=== PATIENT | male | born 2000 | race Caucasian/White ===

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

== ENCOUNTER 2021-09-21 10:19 | Emergency (ER) | payer SELFPAY ==
[2021-09-21 10:25] VITALS: BP 118/98; PULSE 86; RESP 24; TEMP 36.4; O2SAT 100
--- NOTE | 2021-09-21 10:25 | ED.NAVMDI ---
HPI - Nausea/Vomiting/Diarrhea General Chief complaint: Nausea/Vomiting/Diarrhea Stated complaint: Ambulance Time Seen by Provider: 09/21/21 10:25 Source: patient History of Present Illness HPI Narrative: 21-year-old male presents to the ER with an 8 hour history of -- multiple episodes of vomiting and diarrhea. Vomitus is watery. Diarrhea is brown and watery. No blood or mucus noted. -- Generalized abdominal pain. -- No fever. Patient complains of chills and rigors. MD elicited complaint: nausea, vomiting, diarrhea and abdominal pain Pertinent past history: anorexia Onset (ago): hour(s) ( 8 hours ago) Description of vomiting: watery Description of diarrhea: watery and semi-solid Associated nausea: Yes Associated abdominal pain: Yes Location of pain: diffuse Pain consistency: constant Severity: moderate Quality: cramping Exacerbating factors: none Relieving factors: none Context: possible food poisoning ( his fiancee is ill with the same symptoms.) Associated symptoms: myalgias and anxiety Related Data Allergies Allergy/AdvReac Type Severity Reaction Status Date / Time No Known Allergies Allergy Mild Verified 10/15/07 18:46 Review of Systems Review of Systems: All systems reviewed & are unremarkable except as noted in HPI and below Constitutional: Constitutional: Reports as per HPI and Reports no additional constitutional complaints Eyes: Eyes: Reports as per HPI and Reports no additional eye complaints ENT: Reports system reviewed and no additional complaints, except as documented Cardiovascular: Cardiovascular: Reports as per HPI and Reports no additional cardiovascular complaints Respiratory: Respiratory: Reports as per HPI and Reports no additional respiratory complaints Gastrointestinal: Gastrointestinal: Reports as per HPI, Reports no additional gastrointestinal complaints, Reports diarrhea, Reports nausea and Reports vomiting Genitourinary: Genitourinary: Reports no additional male genitourinary complaints Musculoskeletal: Musculoskeletal: Reports myalgias Integumentary/Breasts: Skin/Breast: Reports system reviewed and no additional complaints, except as docu Neurologic: Reports system reviewed and no additional complaints, except as documented Psychiatric: Psychiatric: Reports no additional psychiatric complaints and Reports anxiety Endocrine: Endocrine: Reports no additional endocrine complaints Hematologic/Lymphatic: Hematologic/Lymphatic: Reports no additional hematologic/lymphatic complaints Allergic/Immunologic: Allergic/Immunologic: Reports no additional allergic/immunologic complaints Exam Const: General: no acute distress and alert Orientation/consciousness: patient oriented x3 HENMT: Head: normal to inspection Eyes: Cornea: corneas normal Pupils: Equal, round and reactive pupils present EOM: EOMs intact bilaterally Neck: Neck: normal visual inspection and no lymphadenopathy Chest: Chest palpation & inspection: normal inspection of the chest Resp: Effort & Inspection: normal respiratory effort Auscultation: clear to auscultation bilaterally Cardio: Rate: regular rate Rhythm: regular rhythm GI: GI Palp: Yes Soft to palpation and Yes Tenderness to palpation present (GI) : Testes: Testes normal Back/Spine/Pelvis: Back: no CVA tenderness Skin: General skin exam: normal color Neuro: General: patient oriented x3 and moves all extremities Extrem: General: normal to inspection Psych: Appearance: grossly normal Mental Status: mental status grossly normal Thought content: Yes Normal thought content present MDM - Nausea/Vomiting/Diarrhea MDM Narrative Medical decision making narrative: acute gastroenteritis acute renal failure Differential Diagnosis Differential diagnosis: Likely traveler's diarrhea and food poisoning Lab Data Attestation: I reviewed the patient's lab results. Discharge Plan Discharge Clinical Impression: Gastroenteritis Acute renal failur
[2021-09-21] MEDS: PROCHLORPERAZINE EDISYLATE 10 MG/2 ML VIAL IV PUSH (10:56)
[2021-09-21] MEDS: LACTATED RINGERS 1,000 ML 999 ML IV CONT (10:57)
[2021-09-21 11:05] LABS: Hematocrit 47.5 % (40.0-54.0); Hemoglobin 16.3 g/dL (14.0-18.0); Mean Corpuscular HGB Conc 34.3 g/dL (32.0-36.0); Mean Corpuscular Volume 90.3 fL (78.0-102.0); Mean Platelet Volume 10.3 fl (8.7-11.0); Platelet Count Result 245 K/mm3 (150-420); Red Blood Count 5.26 M/mm3 (4.70-6.10); Red Cell Distribution Width 11.9 % (11.6-14.4)
--- NOTE | 2021-09-21 11:10 | PC.NURSE ---
Lab called with critical white count of 20. Dr. Oviedo notified.
--- NOTE | 2021-09-21 11:16 | PC.NURSE ---
Pt gave verbal permission to speak to mom and finance regarding pt status. Mom called on phone and updated.
[2021-09-21 11:19] LABS: Band Neutrophils Percent 4 % (0-6); INR 1.1; Lymphocytes Percent Manual 2 % (18-44); Monocytes Percent Manual 4 % (3-9); Myelocytes Percent 1 %; Neutrophils Percent Manual 89 % (46-73); Platelet Estimate Adequate (Adequate); Prothrombin Time 11.8 Seconds (9.50-12.10); Total Cells Counted 100
[2021-09-21 11:26] LABS: Lactic Acid Reflex 6.3 mmol/L (0.4-2.0)
[2021-09-21 11:32] LABS: Alanine Aminotransferase 30 U/L (16-63); Albumin Level 4.9 g/dL (3.4-5.0); Alkaline Phosphatase 75 U/L (46-116); Anion Gap 19 mmol/L (8-16); Aspartate Amino Transferase 19 U/L (15-37); Bilirubin,Total 0.8 mg/dL (0.00-1.00); Blood Urea Nitrogen 20 mg/dL (7-18); Calcium 9.7 mg/dL (8.5-10.1); Carbon Dioxide 20 mmol/L (21-32); Chloride 101 mmol/L (98-108); Estimated CRCL calculation 66 ml/min; Estimated Glomerular Filt Rate > 60; Glucose 193 mg/dL (70-99); Lipase 57 U/L (73-393); Osmolality Calculated 297 mOsm/kg (285-295); Potassium 3.4 mmol/L (3.5-5.1); Sodium 140 mmol/L (136-145)
[2021-09-21 11:57] LABS: SARS-CoV-2 Ag Negative (Negative)
--- NOTE | 2021-09-21 12:03 | PC.NURSE ---
Pt refusing second liter of fluids. States he is feeling better and will not have a ride later. Dr. Oviedo notified and states he will come talk to the pt.
--- NOTE | 2021-09-21 12:26 | PC.NURSE ---
Pt had multiple episodes of emesis and diarrhea while in ER. Pt advised multiple times he needed to stay for further treatment and refused. Pt signed AMA>
[2021-09-21 13:25] LABS: Reflex Lactic Acid Yes or No No Lactic Reflex
== END 2021-09-21 12:47 | disposition left against medical advice (07) ==
PROVIDERS: Emergency Provider Internal Medicine Critical Care Medicine
DX: K52.9 Noninfective gastroenteritis and colitis, unspecified (principal); Z20.822 Contact with and (suspected) exposure to COVID-19
CPT/HCPCS: 36415; 80053; 83605; 83690; 85025; 85610; 87426; 96361; 96374; 99284; C9803; J0780; J7120

== ENCOUNTER 2022-08-09 15:31 | Emergency (ER) | payer OTHER, SELFPAY ==
--- NOTE | ~2022-08-09 | XR_ITS ---
EXAMINATION: XR hip RT min 3V w AP pelvis DATE: 08/09/2022 18:12 INDICATION: Right hip pain. TECHNIQUE: An anteroposterior view of the pelvis and 3 views of right hip were obtained. COMPARISON: None. FINDINGS: Bone alignment is normal. No fracture. Joint spaces are normal. IMPRESSION: 1. Normal pelvis and right hip. Reviewed, dictated and finalized at location A. L NUMERICAL CONTROL PROGRAMMER
--- NOTE | ~2022-08-09 | XR_ITS ---
EXAMINATION: XR lumbar spine 2-3V DATE: 08/09/2022 18:12 INDICATION: Right-sided back pain. TECHNIQUE: 3 views of lumbar spine were obtained. COMPARISON: None. FINDINGS: There is 3 degrees levocurvature of lumbar spine. Vertebral body heights and intervertebral disc heights are normal. The facet joints are normal. IMPRESSION: 1. No etiology for the patient's symptoms. Reviewed, dictated and finalized at location A. PENDENT FILM MAKER
--- NOTE | ~2022-08-09 | XR_ITS ---
EXAMINATION: XR thoracic spine 3V DATE: 08/09/2022 18:12 INDICATION: Right-sided back pain. TECHNIQUE: 3 views of thoracic spine were obtained. COMPARISON: None. FINDINGS: Bone alignment is normal. Vertebral body heights and intervertebral disc heights are normal . IMPRESSION: 1. Normal thoracic spine. Reviewed, dictated and finalized at location A. NDSKEEPING MAINTENANCE IMPRESSION: 1. Normal thoracic spine.
[2022-08-09 15:32] VITALS: BP 116/97; PULSE 100; RESP 20; TEMP 36.2; O2SAT 97
--- NOTE | 2022-08-09 17:47 | ED.GENADULT ---
HPI - General Adult General Chief complaint: Back Pain/Injury Stated complaint: back pain Time Seen by Provider: 08/09/22 16:48 Source: patient Mode of arrival: other Limitations: no limitations History of Present Illness HPI narrative: Valente Trujillo is a 22 y/o male who presents with reports of lifting something heavy at work, the object slipped and he went to the floor to catch it and then twisted his back causing right lower back pain at around 11:30. He has been able to ambulate since the incident. Denies numbness tingling to his legs. Related Data Allergies Allergy/AdvReac Type Severity Reaction Status Date / Time No Known Allergies Allergy Mild Verified 08/09/22 17:21 Review of Systems Review of Systems: CONSTITUTIONAL: Denies fever, chills, or sweats. EYES: Denies visual changes, redness, or discharge. ENT: Denies rhinorrhea, congestion, sore throat, or otalgia. CARDIOVASCULAR: Denies chest pain, palpitations, or edema. RESPIRATORY: Denies cough or dyspnea. GASTROINTESTINAL: Denies abdominal pain, nausea, vomiting, or diarrhea. GENITOURINARY: Denies dysuria or hematuria. SKIN: Denies rash or itching. MUSCULOSKELETAL: Reports mid/lower back pain NEUROLOGIC: Denies headache, numbness, dizziness, or weakness. PSYCHIATRIC: Denies anxiety or depression. Exam Narrative: GENERAL: Well-appearing, well-nourished, and in no acute distress. HEAD: Normocephalic, atraumatic. EYES: PERRLA and EOMI. ENT: Nares clear, no rhinorrhea or epistaxis. Mucous membranes moist. Oropharynx without tonsillar hypertrophy exudate or other lesions. NECK: Supple. No adenopathy or masses. No carotid bruits or JVD CHEST: Clear to auscultation. No respiratory distress. No wheezes rales or rhonchi HEART: Regular rate and rhythm. No murmur heard. Normal peripheral pulses. ABDOMEN: Soft, nontender, nondistended, normal active bowel sounds. EXTREMITIES: Normal range of motion. No edema. Patient noted to have pain to thoracic and lumbar pain and noted to have pain to right hip with palpation. SKIN: Warm, dry, no rash. NEURO: No focal deficits. Alert and oriented x3. PSYCH: Normal mood and affect. Course Vital Signs Vital signs: Vital Signs Temperature 36.2 C L 08/09/22 15:32 Pulse Rate 100 08/09/22 15:32 Respiratory Rate 20 08/09/22 15:32 Blood Pressure 116/97 H 08/09/22 15:32 Pulse Oximetry 97 08/09/22 15:32 Temperature 36.2 C L 08/09/22 15:32 Pulse Rate 100 08/09/22 15:32 Respiratory Rate 20 08/09/22 15:32 Blood Pressure 116/97 H 08/09/22 15:32 Pulse Oximetry 97 08/09/22 15:32 Medical Decision Making MDM Narrative Medical decision making narrative: Patient presents from work after straining his lower back while at work as discussed in the HPI. On exam pt is noted to have pain to thoracic and lumbar spine and pain to right hip. Denies numbness tingling down legs, ambulatory with no difficulty. Pain is exacerbated with certain movements and sitting. Plan to check an x-ray of Thoracic/ lumbar and right hip and will treat his pain. Concern for: Muscle sprain/thoracic sprain/ hip injury/ Lumbar Sprain x ray results are negative for acute findings. Most likely muscle strain and will d/c home Differential Diagnosis Differential Diagnosis: Muscle sprain/thoracic sprain/ hip injury/ Lumbar Sprain Vital Signs Vital Signs: Vital Signs Temperature 36.2 C L 08/09/22 15:32 Pulse Rate 100 08/09/22 15:32 Respiratory Rate 20 08/09/22 15:32 Blood Pressure 116/97 H 08/09/22 15:32 Pulse Oximetry 97 08/09/22 15:32 Temperature 36.2 C L 08/09/22 15:32 Pulse Rate 100 08/09/22 15:32 Respiratory Rate 20 08/09/22 15:32 Blood Pressure 116/97 H 08/09/22 15:32 Pulse Oximetry 97 08/09/22 15:32 Imaging Data Attestation: I personally reviewed and interpreted this imaging study as follows: My impression: ITS Impressions Hip/Pelvis X-Ray 08/09/22 18:13 IMPRESSIO
[2022-08-09] MEDS: ORPHENADRINE CITRATE 100 MG TABLET.ER PO (18:09)
[2022-08-09] MEDS: ACETAMINOPHEN 500 MG TABLET 1000 MG PO (18:09)
[2022-08-09] MEDS: KETOROLAC (*BKC) 60 MG/2 ML VIAL IM (18:10)
--- NOTE | 2022-08-09 18:37 | PC.NURSE ---
Pt to nurse's desk complaining about how long he has been in the ER. States If the nurse's would do their jobs I wouldn't still be here. Explained to pt that the nurse's are waiting on a disposition. Pt returned to room. Pt and visitor in room cursing and yelling.
--- NOTE | 2022-08-09 18:42 | PC.NURSE ---
Pt ambulatory out of dept to go somewhere that I can get taken care of quicker . Pt states he has already been to [facility] today prior to coming here.
== END 2022-08-09 18:48 | disposition home or self-care (01) ==
PROVIDERS: Emergency Provider Nurse Practitioner Family
DX: S39.012A Strain of muscle, fascia and tendon of lower back, initial encounter (principal); M54.10 Radiculopathy, site unspecified; X50.0XXA Overexertion from strenuous movement or load, initial encounter; Y99.0 Civilian activity done for income or pay
CPT/HCPCS: 72072; 72100; 73502; 96372; 99284; A9270; J1885

== ENCOUNTER 2022-08-11 15:48 | Emergency (ER) | payer OTHER, SELFPAY ==
[2022-08-11 15:58] VITALS: BP 100/57; PULSE 82; RESP 18; TEMP 36.4; O2SAT 99
[2022-08-11 16:00] VITALS: BP 100/57; PULSE 82; RESP 18; TEMP 36.4; O2SAT 99
--- NOTE | 2022-08-11 16:05 | ED.BACK ---
HPI - Back Pain/Injury General Chief Complaint: Back Pain/Injury Stated Complaint: Lower Rt Back Pain Time Seen by Provider: 08/11/22 16:05 Source: patient, RN notes reviewed and old records reviewed Mode of arrival: ambulatory Limitations: no limitations History of Present Illness HPI Narrative: 22-year-old male presents to the [facility] with complaints of right lower back pain, was seen in the ER 2 days ago. patient states that he was lifting a box when at a pull in his back patient states he is feeling much better. Denies any saddle anesthesia. Walks with a normal gait. No numbness or tingling in extremities. No loss retention of bowel or bladder Related Data Home Medications Medication Instructions Recorded Confirmed No Home Medications 08/11/22 08/11/22 Allergies Allergy/AdvReac Type Severity Reaction Status Date / Time No Known Allergies Allergy Mild Verified 08/11/22 15:59 Review of Systems Review of Systems: All systems reviewed & are unremarkable except as noted in HPI and below Constitutional: Constitutional: Reports no additional constitutional complaints Eyes: Eyes: Reports no additional eye complaints ENT: Reports system reviewed and no additional complaints, except as documented Cardiovascular: Cardiovascular: Reports no additional cardiovascular complaints, Denies chest pain and Denies dyspnea Respiratory: Respiratory: Reports no additional respiratory complaints, Denies chest congestion, Denies cough and Denies dyspnea Gastrointestinal: Gastrointestinal: Reports no additional gastrointestinal complaints, Denies abdominal pain, Denies nausea and Denies vomiting Musculoskeletal: Musculoskeletal: Reports as per HPI and Reports back pain ( right lumbar) Integumentary/Breasts: Skin/Breast: Reports system reviewed and no additional complaints, except as docu Neurologic: Reports system reviewed and no additional complaints, except as documented Psychiatric: Psychiatric: Reports no additional psychiatric complaints Allergic/Immunologic: Allergic/Immunologic: Reports no additional allergic/immunologic complaints PMFSH Comments At the time of my signature, I reviewed and agree with the nursing past medical, surgical, social, and family history. There is no relevant family history pertinent to the patient complaint. Exam Const: General: cooperative, healthy appearing, comfortable, no acute distress, well developed, alert and well nourished Nutritional Appearance: well nourished Orientation/consciousness: patient oriented x3 Limitations: no limitations HENMT: Head: normal to inspection Ears: hearing grossly normal bilaterally and external ears normal Face/Nose/Sinus: Normal external nose present, Normal nares present, Normal nasal mucous membranes and turbinates present and normal facial exam Face and sinus: normal facial exam Mouth: Yes Normal oral and palatal mucosa present, Yes lip normal and Yes moist mucous membranes Throat: posterior oropharynx normal and uvula midline Eyes: General: appearance normal, both eyes and all related structures Alignment and Position: alignment normal Periorbital: periorbital findings normal Conjunctivae: conjunctivae normal Pupils: Equal, round and reactive pupils present EOM: EOMs intact bilaterally Neck: Neck: normal visual inspection, full ROM, no lymphadenopathy and no meningeal signs Chest: Chest palpation & inspection: normal inspection of the chest Resp: Effort & Inspection: normal respiratory effort and able to speak in complete sentences Auscultation: clear to auscultation bilaterally, no crackles, no rales, no rhonchi and no wheezes Cardio: Rate: regular rate Rhythm: regular rhythm GI: GI Palp: Yes Soft to palpation and No Tenderness to palpation present (GI) Back/Spine/Pelvis: Back: no CVA tenderness Cervical Spine: cervical ROM normal Thoracic/Lumbar Spine: No paraspinal muscle tenderness, No thoracic spinal tenderness and No lumbar spi
== END 2022-08-11 16:22 | disposition home or self-care (01) ==
PROVIDERS: Emergency Provider Nurse Practitioner
DX: S39.012A Strain of muscle, fascia and tendon of lower back, initial encounter (principal); X50.0XXA Overexertion from strenuous movement or load, initial encounter
CPT/HCPCS: 99212; G0463

== ENCOUNTER 2022-12-12 14:54 | Emergency (ER) | payer OTHER, SELFPAY ==
[2022-12-12 15:04] VITALS: BP 125/75; PULSE 65; RESP 18; TEMP 36.4; O2SAT 100
--- NOTE | 2022-12-12 15:15 | ED.SYNCOPE ---
HPI - Syncope General Chief Complaint: Syncope Stated Complaint: Numbness of fingers/Dizziness Time Seen by Provider: 12/12/22 14:56 Source: patient Mode of arrival: ambulatory Limitations: no limitations History of Present Illness HPI narrative: Valente is a 22-year-old male patient presenting to the clinic today with complaints of syncopal episode approximately 1 hour ago-states he does not know if he hit his head when passing out. Does not report having a headache at this time. Does state that he is dizzy and having numbness and tingling in his left arm. He denies any chest pain or shortness of breath. Has vomited approximately 3-[address] here and once in the clinic today. Vital signs are stable during triage. Patient is pale and diaphoretic. Did not eat breakfast this morning however he was at [facility] when this occurred Related Data Home Medications Medication Instructions Recorded Confirmed No Home Medications 08/11/22 12/12/22 Allergies Allergy/AdvReac Type Severity Reaction Status Date / Time No Known Allergies Allergy Mild Verified 12/12/22 15:02 Review of Systems Review of Systems: Pertinent positives per HPI. Patient denies any fever, chills, rash, headache, visual changes, cough, runny nose, sore throat, shortness of breath, chest pain, palpitations, diarrhea, constipation, abdominal pain, or any urinary issues. PMFSH Comments At the time of my signature, I reviewed and agree with the nursing past medical, surgical, social, and family history. There is no relevant family history pertinent to the patient complaint. Exam Narrative: General: Well-developed, well nourished, in no apparent distress Head: Normocephalic, atraumatic. Cardio: Regular rate and rhythm, s1 and s2 normal, no murmur appreciated. Resp: Clear to auscultation bilaterally, no rhonchi, rales, wheezing or rubs. Extremities: No deformity, no edema, no cyanosis, capillary refill less than 2 seconds, peripheral pulses palpable and strong. Integumentary: Pale, warm, and diaphoretic, intact without lesion, no rashes. Course Course Emergency Course: Portions of this record may have been created with voice recognition software. Level of Care: Express Care Visit Vital Signs Vital signs: Vital Signs Temperature 36.4 C 12/12/22 15:04 Pulse Rate 65 12/12/22 15:04 Respiratory Rate 18 12/12/22 15:04 Blood Pressure 125/75 12/12/22 15:04 Pulse Oximetry 100 12/12/22 15:04 Oxygen Delivery Room Air 12/12/22 15:04 Temperature 36.4 C 12/12/22 15:04 Pulse Rate 65 12/12/22 15:04 Respiratory Rate 18 12/12/22 15:04 Blood Pressure 125/75 12/12/22 15:04 Pulse Oximetry 100 12/12/22 15:04 Oxygen Delivery Room Air 12/12/22 15:04 Vital signs reviewed Transfer Transfered to: [facility]: [facility] Transfer rationale: Syncopal episode, nausea/vomiting/diaphoretic/pale/left arm numbness Accepting physician: Dr. Mcguire Transfer comments: Transferred via [facility] MDM - Syncope MDM Narrative Medical decision making narrative: At the time of visit patient is sitting on exam table. Patient had syncopal episode and does not know if he hit his head. Has 1 emesis. Patient is diaphoretic and pale. States that he is dizzy with left arm numbness and tingling. EKG shows heart rate of 82 beats per minute sinus rhythm with nonspecific ST and T changes. Blood sugar was 125 in the clinic today. recommend transfer to the ER for further evaluation, fluids, cardiac monitoring, labs, and imaging. Patient agrees to transfer. #18 gauge IV was placed into the left AC by Shahana SHETTY. ALS contacted. Contacted Dr. Mcguire at [facility] and he accepts patient for transfer. Differential Diagnosis Differential diagnosis: Likely syncope due to orthostatic hypotension, vasovagal syncope, complete atrioventricular block, subarachnoid hemorrhage, pulmonary embolism and dehydration ECG Data EKG #1:
[2022-12-12 15:37] LABS: Glucose Point of Care 125 mg/dl (65-105)
--- NOTE | 2022-12-12 15:45 | ECG_ITS ---
Rate 82 MD 148 QRSd 99 QT 347 QTc 407 --Cass-- P 37 QRS 53 T 16 SINUS RHYTHM DELAYED PRECORDIAL R/S TRANSITION NONSPECIFIC ST ELEVATION IN ANTEROLAT/HIGH LAT LEADS BASELINE ARTIFACT- I, II, III, AVR, AVL, AVF, V1-V6 BORDERLINE ECG NO PRIOR ECG FOR COMPARISON Electronically Signed On 12-13-2022 14:24:05 CDT by Yobani LEBRON
== END 2022-12-12 15:55 | disposition short-term general hospital (02) ==
PROVIDERS: Emergency Provider Nurse Practitioner Family
DX: R42 Dizziness and giddiness (principal); R20.2 Paresthesia of skin; R55 Syncope and collapse; R11.2 Nausea with vomiting, unspecified; J45.909 Unspecified asthma, uncomplicated
CPT/HCPCS: 82948; 93005; 99215; G0463

== ENCOUNTER 2022-12-12 15:47 | Emergency (ER) | payer OTHER, SELFPAY ==
--- NOTE | 2022-12-12 15:54 | PC.NURSE ---
Ambulatory outside to smoke.
--- NOTE | 2022-12-12 16:11 | PC.NURSE ---
No answer when called for triage.
--- NOTE | 2022-12-12 16:35 | PC.NURSE ---
Attempted to contact pt and mother due to pt leaving with IV access in. Both numbers are invalid. [place] police contacted.
== END 2022-12-12 16:11 | disposition left against medical advice (07) ==
LOC: ANHED 16:27
DX: Z53.21 Procedure and treatment not carried out due to patient leaving prior to being seen by health care provider (principal)
CPT/HCPCS: 99199

== ENCOUNTER 2023-01-24 09:22 | Emergency (ER) | payer OTHER, SELFPAY ==
[2023-01-24 09:54] VITALS: BP 122/68; PULSE 60; RESP 16; TEMP 36.2; O2SAT 97
--- NOTE | 2023-01-24 11:34 | ED.WOUNDLAC ---
HPI - Wound/Laceration General Chief Complaint: Wound/Laceration Stated Complaint: CUT ARM LAST NIGHT Time Seen by Provider: 01/24/23 09:44 History of Present Illness HPI narrative: patient to the emergency room with complaints of having cut his left forearm with his knife attempting to open a package just prior to arrival. His tetanus shot is up-to-date, however he has a laceration. Bleeding is controlled. , laceration is gaping in pain is minimal. Related Data Home Medications Medication Instructions Recorded Confirmed No Home Medications 08/11/22 12/12/22 Allergies Allergy/AdvReac Type Severity Reaction Status Date / Time No Known Allergies Allergy Mild Verified 01/24/23 09:57 Review of Systems Review of Systems: See HPI All systems reviewed & are unremarkable except as noted in HPI and below Exam Const: General: healthy appearing and no acute distress Nutritional Appearance: well nourished HENMT: Head: normal to inspection Eyes: Conjunctivae: conjunctivae normal Neck: Neck: normal visual inspection and no lymphadenopathy Resp: Effort & Inspection: normal respiratory effort Auscultation: clear to auscultation bilaterally Cardio: Rate: regular rate Rhythm: regular rhythm Heart sounds: no murmurs GI: Inspection: non-distended GI Palp: Yes Soft to palpation and No Tenderness to palpation present (GI) Auscultation: normal bowel sounds Back/Spine/Pelvis: Back: no CVA tenderness Skin: General skin exam: normal color Rashes: no rashes Wounds: wounds noted ( left forearm) laceration left volar other size ( 1 cm), margins well defined, without odor, open and sutures ( 3 placed today) tight Neuro: General: patient oriented x3 and moves all extremities Speech: normal speech Extrem: General: normal to inspection and no edema Psych: Mental Status: mental status grossly normal Affect: normal affect Course Course Emergency Course: patient's wound was cleaned thoroughly and repaired with sutures. He tolerated well without difficulty. His tetanus shot is up-to-date. Vital Signs Vital signs: Vital Signs Temperature 97.1 F L 01/24/23 09:54 Pulse Rate 60 01/24/23 09:54 Respiratory Rate 16 01/24/23 09:54 Blood Pressure 122/68 01/24/23 09:54 Pulse Oximetry 97 01/24/23 09:54 Temperature 97.1 F L 01/24/23 09:54 Pulse Rate 60 01/24/23 09:54 Respiratory Rate 16 01/24/23 09:54 Blood Pressure 122/68 01/24/23 09:54 Pulse Oximetry 97 01/24/23 09:54 MDM - Wound/Laceration MDM Narrative Medical decision making narrative: See ED course Differential Diagnosis Differential diagnosis: Likely laceration, abrasion and avulsion of skin Discharge Plan Discharge Clinical Impression: Laceration Patient Disposition: Home, Self-Care Condition: Stable Instructions: Laceration (ED) Additional Instructions: keep area clean and dry. Do not rub or scrub over sutures firmly. Sutures to be removed in 7 days. If there is a chance of the wound getting dirty please cover with a Band-Aid. For pain after the numbing medication wears off please take [id number] Tylenol and Motrin and you may apply ice. Prescriptions: No Action No Home Medications Follow-up/Referrals: PHYSICIAN,KNIFE CUTTER [Primary Care Provider] - 1 Week ( Follow-up with your physician in 1 week for suture removal.) Time of Disposition: 11:39
[2023-01-24 12:19] VITALS: BP 143/78; PULSE 77; RESP 16; O2SAT 98
== END 2023-01-24 12:18 | disposition home or self-care (01) ==
LOC: ANHED 11:50
PROVIDERS: Emergency Provider Nurse Practitioner Adult Health
DX: S51.812A Laceration without foreign body of left forearm, initial encounter (principal); W26.0XXA Contact with knife, initial encounter
CPT/HCPCS: 12001; 99282

== ENCOUNTER 2023-05-11 10:51 | Emergency (ER) | payer OTHER, SELFPAY ==
--- NOTE | ~2023-05-11 | XR_ITS ---
EXAMINATION: [id number] DATE: 05/11/2023 11:31 INDICATION: Lateral right rib pain post fall TECHNIQUE: A frontal inspiratory view of the chest and 3 views of the right ribs were obtained. COMPARISON: None FINDINGS: No rib fractures identified. Old healed right clavicle fracture deformity. No pneumothorax. No focal infiltrates, pleural effusion or pulmonary edema. Small calcified nodule at the right lung base consi stent with old granulomatous disease. Cardiomediastinal silhouette is normal. Small loose body along the proximal right humerus likely within the long head biceps tendon sheath. IMPRESSION: 1. No rib fracture or acute cardiopulmonary disease. Reviewed, dictated and finalized at location A.
--- NOTE | 2023-05-11 11:17 | ED.UPPEXIN ---
HPI - Extremity Injury (Upper) General Chief Complaint: Extremity Injury, Upper Stated Complaint: Ribcage Injury Time Seen by Provider: 05/11/23 11:02 Source: patient Mode of arrival: ambulatory Limitations: no limitations History of Present Illness HPI narrative: Valente is a 22-year-old male patient presenting to the clinic today with complaints right rib/right side injury. He reports that he was in a manhole yesterday while at work, he was wearing a harness in the manhole and was squeezed up against the manhole when being pulled from the manhole- pain to the right ribs and side- worse with taking deep breath. Denies any shortness of breath. Related Data Allergies Allergy/AdvReac Type Severity Reaction Status Date / Time No Known Allergies Allergy Mild Verified 05/11/23 11:30 Review of Systems Review of Systems: Pertinent positives per HPI. Patient denies any fever, chills, rash, headache, visual changes, dizziness, cough, runny nose, sore throat, shortness of breath, chest pain, palpitations, nausea, vomiting, diarrhea, constipation, abdominal pain, or any urinary issues. PMFSH Comments At the time of my signature, I reviewed and agree with the nursing past medical, surgical, social, and family history. There is no relevant family history pertinent to the patient complaint. Exam Narrative: General: Well-developed, well nourished, in no apparent distress Head: Normocephalic, atraumatic. Cardio: Regular rate and rhythm, s1 and s2 normal, no murmur appreciated. Resp: Clear to auscultation bilaterally, no rhonchi, rales, wheezing or rubs. Musculoskeletal: No deformity, no swelling, no obvious bruising to the right ribs/abdomen, tender to palpation over the anterior and lateral right lower ribs and RUQ, non-distended abdomen, no Scooby sign,+ pain to the ribs with inspiration, grossly normal range of motion, muscle strength strong and equal, peripheral pulse strong, no edema, no cyanosis, normal gait and station Course Course Emergency Course: Portions of this record may have been created with voice recognition software. Level of Care: Express Care Visit Vital Signs Vital signs: Vital Signs Temperature 36.4 C 05/11/23 11:19 Pulse Rate 78 05/11/23 11:19 Respiratory Rate 18 05/11/23 11:19 Blood Pressure 107/82 10/20/23 11:19 Pulse Oximetry 99 05/11/23 11:19 Temperature 36.4 C 05/11/23 11:19 Pulse Rate 78 05/11/23 11:19 Respiratory Rate 18 05/11/23 11:19 Blood Pressure 107/82 05/11/23 11:19 Pulse Oximetry 99 05/11/23 11:19 Vital signs reviewed MDM - Extremity Injury (Upper) MDM Narrative Medical decision making narrative: At the time of visit patient is resting comfortably on exam table. X-rays of the right ribs was performed was negative for any sign of fracture or malalignment. Supportive measures were discussed with the patient he voiced understanding discharge instructions agrees to treatment plan. Differential Diagnosis Differential diagnosis: Likely other (Rib fracture, rib contusion, chest wall pain, costochondritis, atypical chest pain, soft tissue injury) Discharge Plan Discharge Clinical Impression: Contusion of rib on right side Qualifiers: Encounter type: initial encounter Qualified Code(s): S20.211A - Contusion of right front wall of thorax, initial encounter Patient Disposition: Home, Self-Care Condition: Stable Instructions: Antibiotic Form, Rib Contusion (ED) Additional Instructions: Take any prescription medication only as prescribed-Naproxen May use heat or ice to the affected area May use blue emu, lidocaine patches, or asper cream to affected area- do not apply heat or ice directly over cream- can cause burn. Splint your right ribs with a blanket or your hand when coughing, deep breathing, or sneezing Follow up with your PCP in 3-5 days if symptom persist. Prescriptions: New naproxen [Naprosyn] 500 mg tablet 500
[2023-05-11 11:19] VITALS: BP 107/82; PULSE 78; RESP 18; TEMP 36.4; O2SAT 99
== END 2023-05-11 11:51 | disposition home or self-care (01) ==
PROVIDERS: Emergency Provider Nurse Practitioner Family
DX: S20.211A Contusion of right front wall of thorax, initial encounter (principal); W22.8XXA Striking against or struck by other objects, initial encounter; Y99.0 Civilian activity done for income or pay; J45.909 Unspecified asthma, uncomplicated; Z86.16 Personal history of COVID-19
CPT/HCPCS: 71101; 99213; G0463

== ENCOUNTER 2024-11-07 13:34 | Emergency (ER) | payer SELFPAY ==
[2024-11-07 13:36] VITALS: BP 148/101; PULSE 98; RESP 18; TEMP 36.4; O2SAT 98
--- NOTE | 2024-11-07 13:40 | ED.EAR ---
HPI - Ear Problem General Chief complaint: Ear Stated complaint: ear pain Time Seen by Provider: 11/07/24 13:40 Source: patient History of Present Illness HPI Narrative: 24 years old white male came to the ED complaining of pain and discharge of the right ear over the last 3 days. He denies any fever, chills, nausea, vomiting, headache or upper respiratory symptoms or sore throat. History of diabetes. Related Data Allergies Allergy/AdvReac Type Severity Reaction Status Date / Time No Known Allergies Allergy Mild Verified 05/11/23 11:30 Review of Systems Review of Systems: All systems reviewed & are unremarkable except as noted in HPI and below Exam Narrative: General appearance: Well-developed, well-nourished Skin: Normal color Head: Normocephalic, nontraumatic Eyes: Clear conjunctiva ENT: Oropharynx normal, Right ear exam showing swollen auditory canal, slight exudate, diffusely erythematous and severely tender unable to visualize the tympanic membrane, nose normal Neck: Supple, nontender Chest and respiratory: Airway patent, no respiratory distress, no accessory muscle use Heart: Regular rate/rhythm Musculoskeletal: Normal range of motion, nontender back Neurologic: Alert and oriented ?3, SENIOR ACCOUNTING SPECIALIST is normal as tested, no gross motor deficit Course Vital Signs Vital signs: Vital Signs Temperature 36.4 C 11/07/24 13:36 Pulse Rate 11/07/24 13:36 Respiratory Rate 11/07/24 13:36 Blood Pressure 148/101 H 11/07/24 13:36 Pulse Oximetry 98 11/07/24 13:36 Oxygen Delivery Room Air 11/07/24 13:36 Temperature 36.4 C 11/07/24 13:36 Pulse Rate 11/07/24 13:36 Respiratory Rate 11/07/24 13:36 Blood Pressure 148/101 H 11/07/24 13:36 Pulse Oximetry 11/07/24 13:36 Oxygen Delivery Room Air 11/07/24 13:36 Medical Decision Making Vital Signs Vital Signs: Vital Signs Temperature 36.4 C 11/07/24 13:36 Pulse Rate 11/07/24 13:36 Respiratory Rate 11/07/24 13:36 Blood Pressure 148/101 H 11/07/24 13:36 Pulse Oximetry 11/07/24 13:36 Oxygen Delivery Room Air 11/07/24 13:36 Temperature 36.4 C 11/07/24 13:36 Pulse Rate 98 11/07/24 13:36 Respiratory Rate 18 11/07/24 13:36 Blood Pressure 148/101 H 11/07/24 13:36 Pulse Oximetry 98 11/07/24 13:36 Oxygen Delivery Room Air 11/07/24 13:36 Critical Care Time Critical Care Time Critical Care Time: No Discharge Plan Discharge Clinical Impression: Acute otalgia Patient Disposition: Home Condition: Stable Instructions: Antibiotic Form, Earache (ED) Additional Instructions: Return if symptoms are worsening , call your family physician for appointment, take Tylenol , ibuprofen as as needed for aches and pain, continue home medications. Patient Language: Norwegian Prescriptions: New amoxicillin-pot clavulanate [Augmentin] 500-125 mg tablet 1 tablet PO Q8H Qty: 30 0RF ciprofloxacin-hydrocortisone 0.2-1 % drops,suspension 3 drp RIGHT EAR Q12H 7 Days Qty: 10 0RF No Action naproxen [Naprosyn] 500 mg tablet 500 mg PO BID 7 Days Qty: 14 0RF Follow-up/Referrals: UNKNOWN,DOCTOR [Non-Staff] -
[2024-11-07] MEDS: IBUPROFEN 600 MG TABLET PO (13:51)
[2024-11-07] MEDS: HYDROcodone/acetaminophen (*CRX) 5-325 MG TABLET 1 TAB PO (13:52)
--- OUTSIDE RECORDS SUMMARY | 2024-11-07 13:55 | XMS_ITS | Clinical Summary ---
Author Organization [facility] Address [facility] [place] [address] Care Team Providers Care Hrbp Name Role Phone None, Provider MD Primary Care Provider Unavaila ble Allergies No known active allergies Medications No known medications Active Problems Problem Noted Date Diagnosed Date Smoker 09/28/2022 Screening for hepatitis C declined 09/28/2022 Influenza vaccination declined 09/28/2022 Not ready to quit smoking 09/28/2022 Immunizations Immunization Administration Dates Next Due Dtap 04/20/2007, 3,05/01/2002,03/04/2002, 002,2001 HPV GARDASIL 9-VALENT 11/17/2015 HPV4 (Gardasil) 11/23/2012 Hepatitis A (Generic) 02/25/2008,10/21/2004 Hepatitis B Pediatric 05/01/2002,03/04/2002,11/0 02/2001 Hib (Generic) 10/03/2002,05/01/2002,03/04/2002 ,2001 Hib-Hepatitis B (Comvax) 2001 Influenza (Generic) 05/11/2011,06/25/2004,2001 MMR 04/20/2007,06/20/2002 Menactra 11/23/2012 Pneumococcal (Prevnar 7) 07/11/2003,03/04/2002,0 2001,2001 Polio IPV (Ipol) 04/20/2007,06/20/2002, 2,2001 Tdap (Boostrix) 11/23/2012 Varicella Vaccine 02/25/2008,06/20/2002 Family History Medical History Relation Comments Diabetes Father Breast Cancer Mother diagnosed at age 56 COPD Mother Relation Status Comments Father Alive Mother Alive Social History Tobacco Use Types Packs/Day Years Used Date Smoking Tobacco: Every Day Cigarettes 0.5 4 Smokeless Tobacco: Never Tobacco Cessation:Ready to Q uit: No; Counseling Given: Yes Alcohol Use Standard Drinks/Week Comments Yes 3.3 (1 standard drink = 0.6 oz p ure alcohol) socially AUDIT-C Answer Date Recorded Frequency of Alcohol Consumption Never 11/17/2019 Average Number of Drinks Not on file 020 Frequency of Binge Drinking Not on file 10/22 PHQ-2 Answer Date Recorded Patient Health Questionnaire-2 Score 0 08/17/2022 Sex and Gender Information Value Date Recorded Sex Assigned at Not on file Legal Sex Male 4:42 PM CDT Gender Identity Not on file Sexual Orientation Not on file Last Filed Vital Signs Vital Sign Reading Time Taken Comments Blood Pressure 130/76 01/30/2023 10:55 AM CDT Pulse 81 01/30/2023 10:55 AM CDT Temperature 36.2 C (97.2 F) 01/30/2023 10:55 AM CDT Respiratory Rate 16 01/30/2023 10:55 AM CDT Oxygen Saturation 98% 01/30/2023 10:55 AM CDT Inhaled Oxygen Concentration - - Weight 63 kg (139 lb) 01/30/2023 10:55 AM CDT Height 174 cm (5' 8.5 ) 01/30/2023 10:55 AM CDT Body Mass Index 20.83 01/30/2023 10:55 AM CDT Plan of Treatment Health Maintenance Due Date Last Done Comments Meningococcal B Vaccine (1 of 2 - Standard) 2017 Pneumococcal Vaccine: Pediatrics (0 to 5 Years) and At-Risk Patients (6 to 49 Years) (1 of 2 - PCV) 2020 07/11/2003, 03/04/2002, 2001, Additional history exists DTaP, Tdap and Td Vaccines (7 - Td or Tdap) 11/23/2022 11/23/2012, 04/20/2007, 10/03/2002, Additional history exists Annual Physical 09/29/2023 09/28/2022 COVID-19 Vaccine ( season) 2024 PHQ-2 (Physician [place]) 07/23/2024 Hepatitis C 09/28/2052 Postponed from 2019 (Patient Refused) Hepatitis B Vaccines Completed 05/01/2002, 03/04/2002, 2001, Additional history exists Meningococcal Vaccine Aged Out 11/23/2012 No dagmar fortino eligible based on patient's age to complete this topic HPV Vaccines Completed 11/17/2015, 11/23/2012 RSV Immunizations Under 20 Months Aged Out No longer eligible based on patient's age to complete this topic Insurance [facility] REIMBURSEMENTS OF [facility] Care Teams Hrbp Relationship Specialty Start Date End Date None, Provider, MD PCP - General UNKNOWN PHYSICIAN SPECIALTY 01/30/23
== END 2024-11-07 13:57 | disposition home or self-care (01) ==
LOC: CHSED 13:53
PROVIDERS: Emergency Provider Emergency Medicine; PCP Internal Medicine
DX: H92.01 Otalgia, right ear (principal)
CPT/HCPCS: 99283; A9270

== ENCOUNTER 2025-05-27 07:28 | Emergency (ER) | payer SELFPAY ==
[2025-05-27] VITALS (28 sets, daily range): BP systolic 114–185; BP diastolic 59–122; PULSE 65–108; RESP 8–35; TEMP 36.6–36.7; O2SAT 91–100
--- NOTE | ~2025-05-27 | CT_ITS ---
EXAMINATION: CT abdomen pelvis w con DATE: 05/27/2025 09:52 INDICATION: Abdominal pain TECHNIQUE: Computed tomography (CT) of the abdomen and pelvis was performed with 100 mL Omnipaque-350 intravenous contrast. Automated exposure control and iterative reconstruction technique were employed. The dose-length product was 388.97 mGy-cm. COMPARISON: None FINDINGS: Lung bases are clear. Heart size is normal. No pericardial or pleural effusion. Liver, gallbladder, spleen, pancreas, bilateral adrenal glands and kidneys are normal. Bladder and prostate are normal. Bowels including the appendix are normal. No free intraperitoneal gas or fluid. No pathologically enlarged abdominal or pelvic lymphadenopathy. Pectus excavatum. Bones are otherwise unremarkable. IMPRESSION: 1. No acute intra-abdominal/pelvic process. Reviewed, dictated and finalized at location A. WARE TEST AND VALIDATION ENGINEER
--- NOTE | ~2025-05-27 | XR_ITS ---
EXAMINATION: XR chest 1V portable COMPARISON: No comparisons available. HISTORY: Vomiting FINDINGS: The lungs are clear, no effusion. No pneumothorax. Heart is normal size. Mediastinal and hilar contours are within normal limits. Bony thorax no acute abnormality. Miscellaneous: None Impression: No acute cardiopulmonary abnormality. Reviewed, dictated and finalized at location P. ACT LENS FITTER Impression: No acute cardiopulmonary abnormality.
--- NOTE | 2025-05-27 07:32 | ECG_ITS ---
Test Date: 2025-05-27 07:55:14 Measurements Intervals [place] Rate: 66 P: 72 IA: 147 QRS: 95 QRSD: 95 T: -14 QT: 395 QTc: 414 Interpretive Statements SINUS RHYTHM BORDERLINE RIGHT AXIS DEVIATION [QRS AXIS > 90] ST ELEVATION CONSISTENT WITH INJURY, PERICARDITIS, OR EARLY REPOLARIZATION [ST ELEVATION W/O NORMALLY INFLECTED T-WAVE] NONSPECIFIC ST & T-WAVE ABNORMALITY ABNORMAL ECG No previous ECG available for comparison Electronically Signed On 05-27-2025 08:15:22 LADLE WATCHER by Andrew Hernandez M.D.
[2025-05-27] MEDS: diazePAM INJ (*CRX) 10 MG/2 ML SYRINGE IV PUSH (07:41)
--- NOTE | 2025-05-27 07:42 | ED_ITS ---
HPI - Nausea/Vomiting/Diarrhea General Chief complaint: Nausea/Vomiting/Diarrhea Stated complaint: abdominal pain & vomiting Time Seen by Provider: 05/27/25 07:31 Source: patient and EMS Mode of arrival: EMS History of Present Illness HPI Narrative: Patient came to the ED by ambulance from home complaining nausea vomiting, dry heaving for the last 3 days, is telling me that last alcohol intake was 2 days ago. Patient unable to toes because of the severity of nausea and dry heaves. No family member at the bedside I am not able to get more details about his presentation today. Patient also complaining of abdominal pain MD elicited complaint: nausea, vomiting and abdominal pain Associated nausea: Yes Associated abdominal pain: Yes Location of pain: other (Diffuse abdominal tenderness) Radiation: diffuse Related Data Allergies Allergy/AdvReac Type Severity Reaction Status Date / Time No Known Allergies Allergy Mild Verified 05/11/23 11:30 Exam 2 Narrative: General appearance: Well-developed, well-nourished, restless, hyperventilating, vomiting Skin: Normal color Head: Normocephalic, nontraumatic Eyes: Clear conjunctiva ENT: Oropharynx normal, ears normal, nose normal Neck: Supple, nontender Chest and respiratory: Airway patent, no respiratory distress, no accessory muscle use Heart: Regular rate/rhythm Abdomen: Diffuse tenderness, no guarding or rebound, no organomegaly, quiet bowel sounds Vascular: Normal peripheral pulses, normal capillary refill. Musculoskeletal: Normal range of motion, nontender back Neurologic: Alert and oriented ?3, BONBON DIPPER is normal as tested, no gross motor deficit Course Vital Signs Vital signs: Vital Signs Temperature 36.6 C 05/27/25 07:28 Pulse Rate 98 05/27/25 07:28 Respiratory Rate 26 H 05/27/25 07:28 Blood Pressure 156/122 H 05/27/25 07:28 Pulse Oximetry 100 05/27/25 07:28 Oxygen Delivery Room Air 05/27/25 07:28 Temperature 36.7 C 05/27/25 13:20 Pulse Rate 66 05/27/25 13:20 Respiratory Rate 16 05/27/25 13:20 Blood Pressure 122/60 05/27/25 13:20 Pulse Oximetry 100 05/27/25 13:20 Oxygen Delivery Room Air 05/27/25 13:20 MDM - Nausea/Vomiting/Diarrhea MDM Narrative Medical decision making narrative: Patient came with nausea, vomiting and abdominal pain Unable to get more details, patient have severe dry heaving unable to talk. No family member at the bedside Vital signs showing blood pressure 156/122, respiratory rate 26 otherwise within normal limit Physical examination showing restless, anxious, morning, hyperventilating, dry heaving with intermittent vomiting and diffuse abdominal tenderness. Differential diagnosis includes substance abuse, alcohol abuse, alcohol withdrawal, electrolyte imbalance, dehydration, cyclical vomiting syndrome Blood workup today includes CBC, CMP, lipase, ammonia level and coags showed WBC 11.8, creatinine 1.3, total bilirubin 2.7, creatinine kinase 3 O2, alcohol level less than 10, Urine drug screen positive for cannabis and benzos. Patient denies benzo intake probably positive benzo secondary to 10 mg of Valium IV given to the patient prior to urine drug screen. In the ED patient received 2 L of normal saline, 10 mg of Valium IV with slight improvement. Few minutes later started vomiting again. Subsequently patient received 10 mg of Reglan IV, 50 mg Benadryl IV and 5 mg of Haldol IM within 20- 30 minutes patient's symptom resolved feeling much better. Diagnosis intractable vomiting high likely secondary to anxiety/stress and or marijuana intake.. Patient report not taking any benzodiazepines in the past, he takes marijuana daily but been taking less lately. Differential Diagnosis Differential diagnosis: Likely drug-induced nausea and vomiting, dehydration and other (Substance abuse, alcohol withdrawal) Medical Records Attestation: I reviewed the patient's medical records. Lab Data Attestation: I reviewed the patient's lab results. 05/27/25 07:48 05/27/25 07:48 Labs: Lab Results 05/27/25 05/27/25 05/27/25 Range/Units 07:48 10:25 10:26 WBC 11.8 H (4.8-10.8) K/mm3 RBC 5.22 (4.70-6.10) M/mm3 Hgb 16.1 (14.0-18.0) g/dL Hct 47.0 (40.0-54.0) % MCV 90.0 (78.0-102.0) fL MCH 30.8 (27.0-31.0) pg MCHC 34.3 (32-36) g/dL RDW 12.1 (11.6-14.4) % Plt Count 319 (150-420) K/mm3 MPV 9.8 (8.7-11.0) fl Immature Gran % (Auto) 0.4 H (0.0-0.0) % Neut % (Auto) 73.7 H (50.0-70.0) % Lymph % (Auto) 17.0 L (18.0-42.0) % [place] % (Auto) 7.5 (2.0-11.0) % Eos % (Auto) 0.9 L (1.0-6.0) % Baso % (Auto) 0.5 (0.0-1.0) % Lymph # (Auto) 2.01 (1.10-4.50) K/mm3 [place] # (Auto) 0.89 (0.10-0.90) K/mm3 Eos # (Auto) 0.11 (0.02-0.50) K/mm3 Baso # (Auto) 0.06 (0.00-0.10) K/mm3 Abs Immat Gran (auto) 0.05 H (0.00-0.00) K/mm3 Absolute Neuts (auto) 8.67 H (1.70-7.20) K/mm3 Absolute Nucleated RBC 0.00 (0.00-0.00) K/mm3 Nucleated RBC % 0.0 (0-0.0) % PT 11.4 (9.50-12.1) Seconds INR 1.0 Sodium 144 (137-145) mmol/L Potassium 3.5 (3.4-5.0) mmol/L Chloride 105 (98-107) mmol/L Carbon Dioxide 19 L (22-30) mmol/L Anion Gap 20 H (4-12) mmol/L BUN 18 (9-20) mg/dL Creatinine 1.36 H (0.7-1.3) mg/dL Estim Creat Clear Calc 72 ml/min Estimated GFR > 60 (59 - ) Glucose 133 H (65-110) mg/dL Calculated Osmolality 301 H (285-295) mOsm/kg Calcium 10.2 (8.4-10.2) mg/dL Total Bilirubin 2.7 H (0.2-1.3) mg/dL AST 41 (17-59) U/L ALT 40 (6-50) U/L Alkaline Phosphatase 90 (38-126) U/L Ammonia 15 (9-30) umol/L Total Creatine Kinase 203 H (55-170) U/L Total Protein 8.9 H (6.3-8.2) g/dL Albumin 5.6 H (3.5-5.1) g/dL Urine Color Yellow (Yellow) Urine Appearance Clear (Clear) Urine pH 6.5 (5.0-8.0) Ur Specific [place] 1.010 (1.010-1.020) Urine Protein 2+ H (Negative) Urine Glucose (UA) Negative (Negative) Urine Ketones 3+ H (Negative) Ur Blood (Man) Negative (Negative) Urine Nitrate Negative (Negative) Urine Bilirubin 1+ H (Negative) Urine Urobilinogen 0.2 (0.2-1.0) mg/dL Leukocyte Esterase Rfl Negative (Negative) BRIEN/UL Urine RBC 3-5 H (0-2) /hpf Urine WBC None seen (0-3) /hpf Urine Bacteria Trace (None) /hpf Urine Mucus Few H /lpf Urine Opiates Screen Negative (Negative) Urine Methadone Screen Negative (Negative) Ur Barbiturates Screen Negative (Negative) Ur Phencyclidine Scrn Negative (Negative) Ur Amphetamine Screen Negative (Negative) U Benzodiazepines Scrn Positive A (Negative) Urine Cocaine Screen Negative (Negative) U Cannabinoids Screen Positive A (Negative) Ethyl Alcohol < 10 (<10) mg/dL Influenza A (RT-PCR) Negative (Negative) Influenza B (RT-PCR) Negative (Negative) RSV (RT-PCR) Negative (Negative) SARS-CoV-2 RNA (RT-PCR) Negative (Negative) Imaging Data Radiologist's impression: Impressions Chest X-Ray 05/27/25 08:08 Impression: No acute cardiopulmonary abnormality. Abdomen/Pelvis CT 05/27/25 10:05 IMPRESSION: 1. No acute intra-abdominal/pelvic process. Critical Care Time Critical Care Time Critical Care Time: Yes Total Critical Care Time: 30 Discharge Plan Discharge Clinical Impression: Intractable vomiting Patient Disposition: Home Condition: Improved Additional Instructions: Return if symptoms are worsening , call your family physician for appointment, take Tylenol as as needed for aches and pain, continue home medications. Patient Language: Swedish Prescriptions: No Action amoxicillin-pot clavulanate [Augmentin] 500-125 mg tablet 1 tablet PO Q8H Qty: 30 0RF ciprofloxacin-hydrocortisone 0.2-1 % drops,suspension 3 drp RIGHT EAR Q12H 7 Days Qty: 10 0RF naproxen [Naprosyn] 500 mg tablet 500 mg PO BID 7 Days Qty: 14 0RF Follow-up/Referrals: Carlos Lilly MD [Primary Care Provider, Internal Medicine]
[2025-05-27] MEDS: SODIUM CHLORIDE 0.9% IV 2,000 ML 999 ML IV CONT (07:45)
[2025-05-27 07:53] LABS: Hematocrit 47.0 % (40.0-54.0); Hemoglobin 16.1 g/dL (14.0-18.0); Immature Granulocyte Percent A 0.4 % (0.0-0.0); Lymphocytes Absolute Auto 2.01 K/mm3 (1.10-4.50); Mean Corpuscular HGB Conc 34.3 g/dL (32-36); Mean Corpuscular Hemoglobin 30.8 pg (27.0-31.0); Mean Corpuscular Volume 90.0 fL (78.0-102.0); Nucleated Red Blood Cells Absolute Auto 0.00 K/mm3 (0.00-0.00); Nucleated Red Blood Cells Perc 0.0 % (0-0.0); Platelet Count Result 319 K/mm3 (150-420); Red Blood Count 5.22 M/mm3 (4.70-6.10); White Blood Count 11.8 K/mm3 (4.8-10.8)
[2025-05-27 08:05] LABS: Ammonia 15 umol/L (9-30)
[2025-05-27 08:06] LABS: INR 1.0; Prothrombin Time 11.4 Seconds (9.50-12.1)
[2025-05-27 08:07] LABS: Anion Gap 20 mmol/L (4-12); Bilirubin,Total 2.7 mg/dL (0.2-1.3); Blood Urea Nitrogen 18 mg/dL (9-20); Calcium 10.2 mg/dL (8.4-10.2); Carbon Dioxide 19 mmol/L (22-30); Chloride 105 mmol/L (98-107); Estimated CRCL calculation 72 ml/min; Estimated Glomerular Filt Rate > 60; Glucose 133 mg/dL (65-110); Osmolality Calculated 301 mOsm/kg (285-295); Potassium 3.5 mmol/L (3.4-5.0); Sodium 144 mmol/L (137-145)
[2025-05-27 08:08] LABS: Alanine Aminotransferase 40 U/L (6-50); Albumin Level 5.6 g/dL (3.5-5.1); Alkaline Phosphatase 90 U/L (38-126); Aspartate Amino Transferase 41 U/L (17-59); Creatine Kinase 203 U/L (55-170); Total Protein 8.9 g/dL (6.3-8.2)
--- OUTSIDE RECORDS SUMMARY | 2025-05-27 08:13 | XMS_ITS | Clinical Summary ---
Author Organization [facility] Address [facility] [place] [address] Care Team Providers Care Golf Starter And Ranger Name Role Phone None, Provider MD Primary [...] 10:55 AM CDT Height 174 cm (5' 8.5) 01/30/2023 10:55 AM CDT Body Mass Index 20.83 01/30/2023 10:55 AM CDT Plan of Treatment Health Maintenance Due Date Last Done Comments Pneumococcal Vaccine: Pediatrics (0 to 5 Years) and At-Risk Patients (6 to 49 Years) (1 of 2 - PCV) 2020 07/11/2003, 03/04/2002, 2001, Additional history exists DTaP, Tdap and Td Vaccines (7 - Td or Tdap) 11/23/2022 11/23/2012, 04/20/2007, 10/03/2002, Additional history exists Annual Physical 09/29/2023 09/28/2022 COVID-19 Vaccine (1 - 5-26 season) 2025 Influenza Adult (#1) 2025 05/11/2011, 06/25/2004, 06/30/2002 Hepatitis C 09/28/2052 Postponed from 2019 (Patient Refused) Hepatitis B Vaccines Completed 05/01/2002, 03/04/2002, 2001, Additional history exists Hepatitis A Vaccines Completed 02/25/2008, 10/22/19 05 Meningococcal Vaccine Aged Out 11/23/2012 No dagmar fortino eligible based on patient's age to complete this topic HPV Vaccines Completed 11/17/2015, 11/23/2012 Meningococcal B Vaccine Aged Out No l onger eligible based on patient's age to complete this topic RSV Immunizations Under 20 Months Aged Out No longer eligible based on patient's age to complete this topic Insurance [facility] MEDICAL REIMBURSEMENTS OF [place] Care Teams Golf Starter And Ranger Relationship Specialty Start Date End Date None, Provider, MD PCP - General UNKNOWN PHYSICIAN SPECIALTY 01/30/23
[2025-05-27 08:29] LABS: Influenza A QL RT-PCR Negative (Negative); Influenza B QL RT-PCR Negative (Negative); RSV RNA, RT-PCR Negative (Negative); SARS-CoV-2 RNA PCR Negative (Negative)
[2025-05-27] MEDS: ONDANSETRON INJ 4 MG/2 ML VIAL IV PUSH (08:44)
[2025-05-27] MEDS: METOCLOPRAMIDE HCL INJ 10 MG/2 ML VIAL IV PUSH (08:46)
[2025-05-27] MEDS: HALOPERIDOL LACTATE 5 MG/ML VIAL IM (08:52)
--- NOTE | 2025-05-27 09:57 | PC.NURSE ---
Argenis Denis ([facility]):
[2025-05-27 10:31] LABS: Add Urine Microscopic? YES; Appearance Urine Clear (Clear); Glucose Urine UA Negative (Negative); Leukocyte Esterase Ur Negative LEU/UL (Negative); Nitrate Urine Negative (Negative); Specific Grav Ur 1.010 (1.010-1.020)
[2025-05-27 10:53] LABS: Cannabinoid Screen Urine Positive (Negative)
== END 2025-05-27 13:20 | disposition home or self-care (01) ==
PROVIDERS: Emergency Provider Emergency Medicine; PCP Internal Medicine
DX: R11.10 Vomiting, unspecified (principal); Z20.822 Contact with and (suspected) exposure to COVID-19
CPT/HCPCS: 36415; 71045; 74177; 80053; 80307; 81001; 82077; 82140; 82550; 85025; 85610; 87637; 93005; 96361; 96372; 96374; 96375; 99284; J1200; J1630; J2405; J2765; J3360; J7030; Q9967